=== PATIENT | male | born 2000 | race Caucasian/White ===

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

== ENCOUNTER → 2021-10-26 | Outpatient (CLI) | payer OTHER ==
[2021-10-26 16:43] LABS: BASO # 0.05 K/mm3 (0.02-0.10); EOS # 0.53 K/mm3 (0.04-0.40); EOS % 6.4 % (0.0-4.0); HEMOGLOBIN 15.6 g/dL (13.5-18.0); LYMPH# 2.21 K/mm3 (1.50-4.00); MEAN CELL VOLUME 87 fl (78-100); MEAN CORPUSCULAR HEMOGLOBIN 30 pg (27-31); MEAN CORPUSCULAR HGB CONC 35 g/dL (33-37); MEAN PLATELET VOLUME 8.6 fl (7.4-10.4); MONO # 0.83 K/mm3 (0.20-0.80); NEU # 4.63 K/mm3 (1.40-6.50); PLATELET COUNT 269 K/mm3 (130-400); RED BLOOD COUNT 5.18 M/mm3 (4.20-5.60); RED CELL DISTRIBUTION WIDTH 12.5 % (11.5-14.5); WHITE BLOOD COUNT 8.3 K/mm3 (4.8-10.8)
[2021-10-26 16:49] LABS: ALBUMIN 4.6 g/dL (3.5-5.0)
[2021-10-26 16:50] LABS: POTASSIUM 4.4 mmol/L (3.5-5.1)
[2021-10-26 16:54] LABS: TOTAL BILIRUBIN 0.3 mg/dL (0.2-1.2)
== END ==
LOC: LAB 16:03
PROVIDERS: Family Medicine
DX: R06.00 Dyspnea, unspecified (principal); R53.83 Other fatigue; E66.9 Obesity, unspecified; Z87.09 Personal history of other diseases of the respiratory system